=== PATIENT | male | born 1960 | race Caucasian/White ===

== ENCOUNTER 2022-07-16 09:55 | Observation (INO) ==
[~2022-07-16 09:55] MED LIST: Bivalirudin 250 MG VIAL ONE; Heparin 1,000 UNIT/ML 10 ml (10,000 UNITS) CATHLAB/DIALYSIS ONE; Heparin 2 UNITS/ML 1000 mls 3,000 ML IV ONE; Iohexol 350 (CONTRAST) 200 ML MDV IV ONE; Lidocaine 1% MPF 5 ML VIAL ONE; Metoprolol Tartrate 5 mg VIAL 5 ml VIAL (1 mg/ml) ONE; Midazolam 5 mg/5 ml VIAL 1 mg/ml 5 ml VIAL (5 mg) ONE; NS 0.9% 1000 ml BAG 1,000 ML IV SCH; VERAPAMIL 2.5 MG/ML 2 ML VIAL ** 5 mg/2 ml ONE; fentaNYL 100 mcg/2 ml 50 MCG/ML VIAL ONE; nitroGLYCERIN DRIP 25,000 MCG/250 ML BTL ONE
[2022-07-16] MEDS ORDERED: Metoprolol Tartrate 5 mg VIAL 5 ml VIAL (1 mg/ml) IV PRN (11:38)
[2022-07-17 04:58] LABS: ABS Lymphocytes 1.2 10^3/uL (1.0-4.8); ABS Monocytes 0.7 10^3/uL (0.0-1.1); Eosinophil % 0.7 %; Hematocrit 35.3 % (38-53); Hemoglobin 12.4 g/dL (13.2-16.3); Lymphocyte % 24.1 %; Mean Corpuscular Hgb Conc 35.1 g/dL (31-36); Mean Corpuscular Volume 97.1 fL (80-97); Mean Platelet Volume 7.3 fL (7.5-11.2); Nucleated Red Blood Cells % 0.1 /100 WBC (0.0-0.4); Platelet Count 157 10^3/uL (150-450); Red Blood Count 3.63 10^6/uL (4.06-5.63); Red Cell Distribution Width 14.4 % (12-17); White Blood Count 4.9 10^3/uL (3.6-10.2)
[2022-07-17 05:36] LABS: Calcium 8.4 mg/dL (8.6-10.3); Creatinine, Serum 0.67 mg/dL (0.67-1.17); Magnesium 1.7 mg/dL (1.9-2.7); Potassium 3.8 mmol/L (3.5-5.0); eGFR CKD-EPI 107.6 (>60)
[2022-07-17] MEDS ORDERED: Magnesium Sulfate IV 1GM/100ML 1 GM/100 ML BAG IV ONE (06:20)
[2022-07-17] MEDS ORDERED: Potassium Chlor 20 meq TAB.ER PO ONE (09:10)
[2022-07-17 10:23] VITALS: BP 152/92
== END 2022-07-17 11:00 | disposition home or self-care (01) ==
LOC: ICU 10:13 → INTOOBSV 10:13

== ENCOUNTER 2022-08-17 13:56 | Observation (INO) ==
[2022-08-17 14:48] LABS: ABS Lymphocytes 0.9 10^3/uL (1.0-4.8); ABS Monocytes 0.8 10^3/uL (0.0-1.1); ABS Nucleated RBC 0.01 10^3/ul; Eosinophil % 0.1 %; Hematocrit 36.5 % (38-53); Mean Corpuscular Hemoglobin 33.6 pg (27-33); Mean Corpuscular Hgb Conc 35.7 g/dL (31-36); Mean Corpuscular Volume 94.3 fL (80-97); Mean Platelet Volume 8.1 fL (7.5-11.2); Nucleated Red Blood Cells % 0.1 /100 WBC (0.0-0.4); Platelet Count 144 10^3/uL (150-450); Red Blood Count 3.87 10^6/uL (4.06-5.63); Red Cell Distribution Width 13.5 % (12-17); White Blood Count 8.7 10^3/uL (3.6-10.2)
[2022-08-17 14:54] LABS: INR 1.18 (0.88-1.18)
[2022-08-17 15:27] LABS: Albumin 4.1 g/dL (3.2-5.2); Albumin/Globulin Ratio 0.9 (1-3); Calcium 9.1 mg/dL (8.6-10.3); Creatinine, Serum 1.06 mg/dL (0.67-1.17); Globulin 4.4 g/dL (2-4); Potassium 4.4 mmol/L (3.5-5.0); Total Bilirubin 2.2 mg/dL (0.2-1.0); Total Protein 8.5 g/dL (6.4-8.9); eGFR CKD-EPI 80.8 (>60)
[2022-08-17 16:22] LABS: High Sensitivity Troponin 1 Hr 10 pg/mL (<20)
[2022-08-17] MEDS ORDERED: NS 0.9% 1000 ml BAG 1,000 ML IV ONE (16:47)
[2022-08-17 17:21] LABS: Albumin 4.1 g/dL (3.2-5.2); Albumin/Globulin Ratio 0.9 (1-3); Calcium 9.1 mg/dL (8.6-10.3); Creatinine, Serum 1.12 mg/dL (0.67-1.17); Globulin 4.4 g/dL (2-4); Potassium 4.2 mmol/L (3.5-5.0); Total Bilirubin 2.2 mg/dL (0.2-1.0); Total Protein 8.5 g/dL (6.4-8.9); eGFR CKD-EPI 75.7 (>60)
[2022-08-17] MEDS ORDERED: LORazepam 2 mg VIAL 1 ml IV PUSH SCH (19:00)
[2022-08-17] MEDS ORDERED: Enoxaparin 40 MG/0.4 ML SYR SUBCUT SCH (21:00)
[2022-08-17 22:57] LABS: Osmolality Serum 265 mOsm/kg (275-295)
[2022-08-17 22:59] LABS: Protime (Maddrey) 13.2 seconds (9.5-12.8)
[2022-08-17 23:11] LABS: Calcium 8.9 mg/dL (8.6-10.3); Creatinine, Serum 1.07 mg/dL (0.67-1.17); Potassium 3.7 mmol/L (3.5-5.0); eGFR CKD-EPI 79.9 (>60)
[2022-08-18] MEDS ORDERED: NS 0.9% 1000 ml BAG 1,000 ML IV SCH ×2 (02:00→06:44)
[2022-08-18 06:24] LABS: INR 1.24 (0.88-1.18)
[2022-08-18 06:30] LABS: Albumin 3.6 g/dL (3.2-5.2); Albumin/Globulin Ratio 0.9 (1-3); Calcium 8.5 mg/dL (8.6-10.3); Creatinine, Serum 0.87 mg/dL (0.67-1.17); Globulin 3.9 g/dL (2-4); Potassium 3.9 mmol/L (3.5-5.0); Total Bilirubin 1.8 mg/dL (0.2-1.0); Total Protein 7.5 g/dL (6.4-8.9); eGFR CKD-EPI 99.4 (>60)
[2022-08-18 06:40] LABS: ABS Lymphocytes 0.9 10^3/uL (1.0-4.8); ABS Monocytes 0.6 10^3/uL (0.0-1.1); ABS Neutrophils 3.3 10^3/uL (1.5-7.6); Eosinophil % 0.5 %; Hematocrit 34.4 % (38-53); Lymphocyte % 18.2 %; Mean Corpuscular Hemoglobin 34.2 pg (27-33); Mean Corpuscular Volume 97.6 fL (80-97); Mean Platelet Volume 8.1 fL (7.5-11.2); Platelet Count 99 10^3/uL (150-450); Red Blood Count 3.52 10^6/uL (4.06-5.63); Red Cell Distribution Width 13.7 % (12-17); White Blood Count 4.9 10^3/uL (3.6-10.2)
[2022-08-18] MEDS ORDERED: Aspirin EC 81 mg TAB.EC (enteric coated) PO SCH (09:00)
[2022-08-18 09:22] LABS: Direct Bilirubin 0.5 mg/dL (0.03-0.18); Indirect Bilirubin 1.3 mg/dL (0.3-1.0)
[2022-08-18 09:37] LABS: C Reactive Protein 14.66 mg/L (<8.01)
[2022-08-18 11:43] LABS: Urine Appearance Clear; Urine Bilirubin Negative (Negative); Urine Blood 2+ (Negative); Urine Color Yellow; Urine Glucose Negative (Negative); Urine Ketones Negative (Negative); Urine Nitrite Negative (Negative); Urine Protein Negative (Negative); Urine Specific Gravity 1.003 (1.002-1.030); Urine Urobilinogen Negative (Negative)
[2022-08-18 11:45] LABS: Urine Bacteria Absent (Absent); Urine Red Blood Cell Trace(0-2/hpf) (Absent); Urine White Blood Cell Trace(0-5/hpf) (Absent)
[2022-08-18 12:39] LABS: Urine Osmo 131 mOsm/kg (150-1150)
[2022-08-18 14:37] LABS: Calcium 8.8 mg/dL (8.6-10.3); Creatinine, Serum 0.88 mg/dL (0.67-1.17); Potassium 3.8 mmol/L (3.5-5.0); eGFR CKD-EPI 99.1 (>60)
[2022-08-18 15:14] VITALS: BP 135/83
[2022-08-18] MEDS ORDERED: Potassium EFFERVES 25 meq TAB PO ONE (15:29)
== END 2022-08-18 16:58 | disposition home or self-care (01) ==
LOC: ED 13:56 → EDHOLD 13:56 → SUATTDRO 18:31 → MED 22:13
PROVIDERS: ADMIT Internal Medicine; ATTEND Internal Medicine